=== PATIENT | male | born 1935 | race Caucasian/White ===

== ENCOUNTER 2021-12-31 13:05 | Observation (INO) ==
[2021-12-31 14:09] LABS: Basophils % 0.3 %; Hematocrit 38.5 % (37.5-50.1); Hemoglobin 13.2 g/dL (12.9-16.9); Immature Granulocytes % 0.5 % (0-4); Lymphocytes # 1.1 K/mcL (0.6-4.6); Lymphocytes % 7.3 %; Mean Corpuscular HGB Conc 34.3 g/dL (31.6-35.5); Mean Corpuscular Hemoglobin 30.8 pg (28.0-33.3); Mean Platelet Volume 9.7 fL (9.4-12.4); Monocytes # 2.2 K/mcL (0.0-1.3); Monocytes % 14.5 %; Neutrophils # 11.9 K/mcL (1.6-8.9); Platelet Count 317 K/mcL (140-400); Red Blood Count 4.28 M/mcL (4.19-5.50); Segmented Neutrophils % 77.4 %; White Blood Count 15.4 K/mcL (4.3-11.1)
[2021-12-31 14:10] LABS: Basophils # 0.1 K/mcL (0.0-0.2)
[2021-12-31 14:23] LABS: Albumin 3.6 g/dL (3.5-5.7); Albumin/Globulin Ratio 1.2 (1.1-2.2); Bilirubin,Total 1.8 mg/dL (0.3-1.0); Calcium 9.3 mg/dL (8.6-10.3); Globulin 3.1 g/dL (2.4-3.5); Total Protein 6.7 g/dL (6.4-8.9); Uric Acid 6.3 mg/dL (2.3-7.6)
[2021-12-31] MEDS ORDERED: Naloxone 0.4 MG/ML INJ IVP PRN (19:26)
[2021-12-31] MEDS ORDERED: Acetaminophen 325 MG TABLET PO PRN (19:31)
[2022-01-01] MEDS: Metoclopramide 10 MG/2 ML VIAL IVP PRN (00:52)
[2022-01-01 04:19] LABS: Basophils # 0.1 K/mcL (0.0-0.2); Basophils % 0.4 %; Hematocrit 37.4 % (37.5-50.1); Immature Granulocytes % 0.5 % (0-4); Lymphocytes % 7.3 %; Mean Corpuscular HGB Conc 34.8 g/dL (31.6-35.5); Mean Corpuscular Hemoglobin 31.2 pg (28.0-33.3); Mean Corpuscular Volume 89.7 fL (83.0-100.0); Mean Platelet Volume 9.7 fL (9.4-12.4); Platelet Count 320 K/mcL (140-400); Red Blood Count 4.17 M/mcL (4.19-5.50); Segmented Neutrophils % 77.8 %; White Blood Count 14.2 K/mcL (4.3-11.1)
[2022-01-01 04:21] LABS: Neutrophils # 11.1 K/mcL (1.6-8.9)
[2022-01-01 04:36] LABS: Albumin 3.4 g/dL (3.5-5.7); Albumin/Globulin Ratio 1.1 (1.1-2.2); Bilirubin,Total 1.9 mg/dL (0.3-1.0); Calcium 9.1 mg/dL (8.6-10.3); Total Protein 6.4 g/dL (6.4-8.9)
[2022-01-01] MEDS: *HR* Enoxaparin 30 MG/0.3 ML SYRINGE SQ SCH (06:12)
[2022-01-01] MEDS ORDERED: NON-FORMULARY MEDICATION 1 EACH EACH (Zinc Gluconate [Zinc] 50 MG Tablet) PO SCH (09:00)
[2022-01-01] MEDS: Ascorbic Acid 500 MG TABLET PO SCH (10:38)
[2022-01-01] MEDS: Aspirin Enteric Coated 81 MG Tablet PO SCH (10:38)
[2022-01-01] MEDS: amLODIPine 5 MG TABLET PO SCH (10:38)
[2022-01-01] MEDS: lisinopriL 20 MG TABLET PO SCH (10:38)
[2022-01-01] MEDS: allopurinoL 100 MG TABLET PO SCH (10:38)
[2022-01-01] MEDS: predniSONE 20 MG TABLET PO SCH (11:20)
[2022-01-01] MEDS: Vancomycin 1,500 MG/265 ML IV.SOLN IVPB SCH (14:25)
[2022-01-01] MEDS: Acetaminophen 325 MG TABLET PO PRN (20:31)
[2022-01-02] MEDS: Metoclopramide 10 MG/2 ML VIAL IVP PRN ×2 (02:27→12:20)
[2022-01-02] MEDS: *HR* Enoxaparin 30 MG/0.3 ML SYRINGE SQ SCH (04:52)
[2022-01-02 05:02] LABS: Hemoglobin 13.5 g/dL (12.9-16.9); Mean Corpuscular HGB Conc 34.6 g/dL (31.6-35.5); Mean Corpuscular Hemoglobin 31.1 pg (28.0-33.3); Mean Corpuscular Volume 89.9 fL (83.0-100.0); Mean Platelet Volume 9.8 fL (9.4-12.4); Platelet Count 375 K/mcL (140-400); Red Blood Count 4.34 M/mcL (4.19-5.50); Red Cell Distribution Width 12.8 % (11.5-14.5); White Blood Count 18.4 K/mcL (4.3-11.1)
[2022-01-02 05:17] LABS: Albumin 3.3 g/dL (3.5-5.7); Bilirubin,Total 1.3 mg/dL (0.3-1.0); Calcium 9.1 mg/dL (8.6-10.3); Globulin 3.2 g/dL (2.4-3.5); Potassium 3.8 mEq/L (3.5-5.1); Total Protein 6.5 g/dL (6.4-8.9)
[2022-01-02] MEDS: Acetaminophen 325 MG TABLET PO PRN (09:00)
[2022-01-02] MEDS: allopurinoL 100 MG TABLET PO SCH (09:00)
[2022-01-02] MEDS: lisinopriL 20 MG TABLET PO SCH (09:00)
[2022-01-02] MEDS: Aspirin Enteric Coated 81 MG Tablet PO SCH (09:00)
[2022-01-02] MEDS: Ascorbic Acid 500 MG TABLET PO SCH (09:00)
[2022-01-02] MEDS: amLODIPine 5 MG TABLET PO SCH (09:00)
[2022-01-02] MEDS: predniSONE 20 MG TABLET PO SCH (09:00)
[2022-01-02] MEDS ORDERED: polyethylene glycoL 3350 17 GM POWD.PACK PO PRN (13:38)
[2022-01-02] MEDS: Vancomycin 1,500 MG/265 ML IV.SOLN IVPB SCH (14:31)
[2022-01-03] MEDS: *HR* Enoxaparin 30 MG/0.3 ML SYRINGE SQ SCH (04:43)
[2022-01-03 05:13] LABS: Hematocrit 38.3 % (37.5-50.1); Hemoglobin 13.3 g/dL (12.9-16.9); Mean Corpuscular HGB Conc 34.7 g/dL (31.6-35.5); Mean Corpuscular Hemoglobin 31.1 pg (28.0-33.3); Mean Corpuscular Volume 89.5 fL (83.0-100.0); Mean Platelet Volume 9.7 fL (9.4-12.4); Platelet Count 429 K/mcL (140-400); Red Blood Count 4.28 M/mcL (4.19-5.50); Red Cell Distribution Width 12.6 % (11.5-14.5); White Blood Count 16.9 K/mcL (4.3-11.1)
[2022-01-03 05:23] LABS: Calcium 8.9 mg/dL (8.6-10.3)
[2022-01-03] MEDS: Metoclopramide 10 MG/2 ML VIAL IVP PRN (06:10)
[2022-01-03] MEDS: predniSONE 20 MG TABLET PO SCH (08:29)
[2022-01-03] MEDS: Aspirin Enteric Coated 81 MG Tablet PO SCH (08:41)
[2022-01-03] MEDS: amLODIPine 5 MG TABLET PO SCH (08:41)
[2022-01-03] MEDS: lisinopriL 20 MG TABLET PO SCH (08:41)
[2022-01-03] MEDS: Ascorbic Acid 500 MG TABLET PO SCH (08:42)
[2022-01-03] MEDS: allopurinoL 100 MG TABLET PO SCH (08:42)
[2022-01-03] MEDS: Acetaminophen 325 MG TABLET PO PRN (08:42)
[2022-01-03] MEDS ORDERED: predniSONE 20 MG TABLET PO SCH (09:00)
[2022-01-03] MEDS ORDERED: carvediloL 6.25 MG TABLET PO SCH (13:27)
[2022-01-03] MEDS: Vancomycin 1,500 MG/265 ML IV.SOLN IVPB SCH (13:59)
[2022-01-03 14:21] VITALS: O2SAT 95
[2022-01-03 16:36] VITALS: BP 148/71; PULSE 62; RESP 16; TEMP 98.2
[2022-01-04] MEDS ORDERED: *HR* Enoxaparin 40 MG/0.4 ML SYRINGE SQ SCH (06:00)
[2022-01-04] MEDS ORDERED: carvediloL 6.25 MG TABLET PO SCH (08:00)
== END 2022-01-03 18:42 | disposition home or self-care (01) ==
LOC: EMEROOGRE 13:05 → INPGRE 13:05
PROVIDERS: ADMIT Family Medicine; ATTEND Family Medicine